=== PATIENT | male | born 1990 | race Caucasian/White ===

== ENCOUNTER 2017-04-12 18:00 | Emergency (ER) | payer BC ==
[~2017-04-12] VITALS: Ht 177.8 cm; Wt 73.0 kg
[2017-04-12 18:10] VITALS: BP 150/72
[2017-04-12] MEDS ORDERED: PERCOCET 5/325M1 TAB PO (20:37)
== END 2017-04-12 20:40 | disposition home or self-care (01) | DRG 605 ==
LOC: ED 18:00
DX: S70.12XA Contusion of left thigh, initial encounter (principal); S90.32XA Contusion of left foot, initial encounter; W22.8XXA Striking against or struck by other objects, initial encounter; Y93.H2 Activity, gardening and landscaping; Y92.89 Other specified places as the place of occurrence of the external cause

== ENCOUNTER 2020-07-23 17:10 | Emergency (ER) | payer OTHER ==
[~2020-07-23] VITALS: Ht 177.8 cm; Wt 80.0 kg
[~2020-07-23 17:10] MED LIST: PERCOCET 5/325M1 TAB PO
[2020-07-23 18:44] VITALS: BP 156/77
[2020-07-23] MEDS ORDERED: BACTRIM DS1 TAB PO (19:52)
[2020-07-23] MEDS ORDERED: CEPHALEXIN500 M1 PO (19:52)
== END 2020-07-23 20:08 | disposition home or self-care (01) | DRG 914 ==
LOC: ED 17:10
DX: S91.141A Puncture wound with foreign body of right great toe without damage to nail, initial encounter (principal); F17.210 Nicotine dependence, cigarettes, uncomplicated; W29.4XXA Contact with nail gun, initial encounter; Y93.H3 Activity, building and construction; Y99.0 Civilian activity done for income or pay

== ENCOUNTER 2020-07-31 10:23 | Day surgery (SDC) | payer OTHER ==
[~2020-07-31] VITALS: Ht 177.8 cm; Wt 79.4 kg
[~2020-07-31 10:23] MED LIST changes: +BACTRIM DS1 TAB PO; +CEPHALEXIN500 M1 PO; +VITAMIN C500 M6 PO
[2020-07-31 13:15] VITALS: BP 128/87
== END 2020-07-31 13:40 | disposition home or self-care (01) | DRG 914 ==
LOC: ORM 10:23
PROVIDERS: ATTEND Podiatrist Foot & Ankle Surgery
PROC: 0JCQ0ZZ Extirpation of Matter from Right Foot Subcutaneous Tissue and Fascia, Open Approach (ICD-10-PCS; principal; 2020-07-31)
DX: S91.141A Puncture wound with foreign body of right great toe without damage to nail, initial encounter (principal); L03.115 Cellulitis of right lower limb; W29.4XXA Contact with nail gun, initial encounter; Y93.H3 Activity, building and construction; Y99.0 Civilian activity done for income or pay; Z20.822 Contact with and (suspected) exposure to COVID-19
CPT/HCPCS: J0131

== ENCOUNTER 2022-08-23 18:39 | Emergency (ER) | payer BC | END 2022-08-23 20:00 | disposition left against medical advice (07) | DRG 951 | LOC: ED 18:39 → LWOBS 19:49 | DX: Z53.21 Procedure and treatment not carried out due to patient leaving prior to being seen by health care provider (principal) ==